=== PATIENT | female | born 1935 ===

== ENCOUNTER 2017-09-08 11:08 | Emergency (ER) | payer OTHER ==
[~2017-09-08] VITALS: Ht 157.5 cm; Wt 68.0 kg
[2017-09-08] MEDS ORDERED: METFORMIN HCL500 MG (11:40)
[2017-09-08] MEDS ORDERED: SYNTHROID100 MCG (11:40)
== END 2017-09-08 14:52 | disposition home or self-care (01) ==
LOC: ER 11:08
DX: E11.65 Type 2 diabetes mellitus with hyperglycemia (principal)

== ENCOUNTER → 2022-06-17 | Outpatient (CLI) | payer OTHER ==
[~2022-06-17] MED LIST: METFORMIN HCL500 MG; SYNTHROID100 MCG
== END | disposition home or self-care (01) ==
LOC: SONOGRAMA 07:56
PROVIDERS: ATTEND Internal Medicine
DX: M25.512 Pain in left shoulder (principal)